=== PATIENT | male | born 1985 | race Caucasian/White ===

== ENCOUNTER 2018-08-26 15:20 | Emergency (ER) | payer MEDICAID ==
[~2018-08-26] VITALS: Ht 162.6 cm; Wt 76.2 kg
[2018-08-26 15:43] VITALS: Ht 162.6 cm; Wt 76.2 kg
[2018-08-26] MEDS ORDERED: CETI10CA PO (19:03)
[2018-08-26] MEDS ORDERED: HYDR28OI2 TP (19:03)
[2018-08-26] MEDS ORDERED: BEN50 PO (19:03)
--- NOTE | 2018-08-26 19:06 | ERD ---
ER Documentation Chief Complaint Chief Complaint rash to hand and arm x 3 days HPI 33-year-old male presents for rash x3 days. He states that the rash on the right hand and left forearm. There is mild patient is noted. Denies fevers or chills. Denies cough or runny nose. No prior similar symptoms. He works in construction. No treatment tried at home. No other modifying factors noted. He does no have significant past medical history. ROS All systems reviewed and are negative except as per history of present illness. Medications Home Meds Active Scripts Cetirizine Hcl* (Zyrtec*) 10 Mg Capsule, 10 MG PO DAILY PRN for ITCHING, #30 TA B.CHEW Prov:MANSI DENIS 08/26/18 Diphenhydramine Hcl* (Benadryl*) 50 Mg Cap, 50 MG PO Q6 PRN for ITCHING, #30 CAP Prov:ADEELMANSI CARPIO 08/26/18 Hydrocortisone Acetate (Hydrocortisone) 28 Gm Oint...g., 28 GM TP BID PRN for ITCHING, #1 TUBE Prov:MANSI DENIS 08/26/18 PMhx/Soc Medical and Surgical Hx: pt denies Medical Hx, pt denies Surgical Hx Hx Alcohol Use: No Hx Substance Use: No Hx Tobacco Use: No Smoking Status: Never smoker FmHx Family History: No coronary disease Physical Exam Vitals Vital Signs Date Temp Pulse Resp B/P (MAP) Pulse Ox O2 O2 Flow FiO2 Time Delivery Rate 08/26/18 99.5 86 18 145/80 97 15:43 (101) Physical Exam Const: No acute distress Resp: Clear to auscultation bilaterally Cardio: Regular rate and rhythm, no murmurs Abd: Soft, non tender, non distended. Normal bowel sounds Skin: Vesicular, mild erythematous rash noted over the right hand and left forearm Back: No midline or flank tenderness Ext: No cyanosis, or edema Neur: Awake and alert Psych: Normal Mood and Affect Procedures/MDM Medical Decision Making: Differential diagnosis includes but not limited to contact dermatitis, atopic dermatitis, cellulitis, allergic reaction Patient appeared well on physical exam. Examination consistent with a contact dermatitis Prescription(s): Patient given prescription for supportive medication(s). Patient advised to follow up with PCP in 1-2 days. Patient advised to return to ED for new or worsening symptoms. Patient stable on discharge from the ED. Disclaimer: Inadvertent spelling and grammatical errors are likely due to EHR/dictation software use and do not reflect on the overall quality of patient care. Also, please note that the electronic time recorded on this note does not necessarily reflect the actual time of the patient encounter. Departure Diagnosis: Primary Impression: Dermatitis Condition: Fair Patient Instructions: Contact Dermatitis Referrals: COMM[facility] YOU HAVE RECEIVED A MEDICAL SCREENING EXAM AND THE RESULTS INDICATE THAT YOU DO NOT HAVE A CONDITION THAT REQUIRES URGENT TREATMENT IN THE EMERGENCY DEPARTMENT. FURTHER EVALUATION AND TREATMENT OF YOUR CONDITION CAN WAIT UNTIL YOU ARE SEEN IN YOUR DOCTORS OFFICE WITHIN THE NEXT 1-2 DAYS. IT IS YOUR RESPONSIBILITY TO MAKE AN APPOINTMENT FOR FOLOW-UP CARE. IF YOU HAVE A PRIMARY DOCTOR --you should call your primary doctor and schedule an appointment IF YOU DO NOT HAVE A PRIMARY DOCTOR YOU CAN CALL OUR PHYSICIAN REFERRAL HOTLINE AT IF YOU CAN NOT AFFORD TO SEE A PHYSICIAN YOU CAN CHOSE FROM THE FOLLOWING [facility] [address] [facility] [address] [email or web address] [facility] [address] [facility] [address] [facility] [address] [facility]. [address] Additional Instructions: Llame al doctor MAANA y akosua brtitney CAYDEN PARA DENTRO DE 1-2 GALLOWAY.Dgale a la secretaria que nosotros le instruimos hacer esta cayden.Avise o llame si hernandez condicin se empeora antes de la cayden. Regresa aqui si peor o no mejor. MANSI DENIS DO August 26, 2018 19:06
[2018-08-26 19:12] VITALS: BP 138/77; PULSE 77; RESP 17
== END 2018-08-26 19:13 | disposition home or self-care (01) ==
LOC: FTE 15:20
DX: L30.9 Dermatitis, unspecified (principal)
CPT/HCPCS: 99282